=== PATIENT | female | born 1935 | race Caucasian/White ===

== ENCOUNTER 2017-04-23 10:40 | Inpatient (IN) | payer MEDICARE, BC ==
[~2017-04-23] VITALS: Ht 154.9 cm; Wt 152.0 kg
[~2017-04-23 10:40] MED LIST: ANAS1TAB7 PO; ANUHCC TOP; CHOL400T15 PO; DOCU-150 PO; ELIQUIS PO; FERR-63 PO; FLUT1DIS IH; FOLI-43 PO; METHENAMINE PO; METO25TA6 PO; OMEP20CA10 PO; PRAV10TA35 PO
[2017-04-23 12:02] LABS: BASOPHILS % 0.5 % (0.0-2.0); EOSINOPHILS % 0.2 % (0.0-5.0); HEMATOCRIT. 33.4 % (36.0-48.0); HEMOGLOBIN. 11.4 g/dL (12.0-16.0); LYMPHOCYTES % 10.8 % (20.0-50.0); MEAN CORPUSCULAR HEMOGLOBIN 33.6 pg (28.0-32.0); MEAN CORPUSCULAR VOLUME 98.4 fL (81.0-99.0); MEAN PLATELET VOLUME 8.1 fl (7.4-10.4); MONOCYTES % 8.8 % (2.0-8.0); NEUTROPHILS % 79.7 % (40.0-76.0); PLATELET 337 x1000/uL (130-400); RED BLOOD CELL COUNT 3.39 mill/uL (4.2-5.4); RED CELL DISTRIBUTION WIDTH 15.4 % (11.6-14.6)
[2017-04-23 12:06] LABS: CARBON DIOXIDE 31 mEq/L (21-32); CHLORIDE 96 mEq/L (98-107)
[2017-04-23 12:11] LABS: TROPONIN I 0.13 ng/mL (0.00-0.04)
[2017-04-23 12:24] LABS: D-DIMER 0.42 mg/L FEU (<0.50); INR 1.1; PROTHROMBIN TIME 11.8 sec (9.4-11.6)
[2017-04-23 16:00] VITALS: BP 117/58
[2017-04-23 16:38] VITALS: BP 117/58
[2017-04-23] MEDS ORDERED: CRANBERRY PO (17:43)
[2017-04-23] MEDS ORDERED: SPIR25TA4 PO (17:43)
[2017-04-23] MEDS ORDERED: DILT120C88 PO (17:43)
[2017-04-23] MEDS ORDERED: ASCO500C6 PO (17:43)
[2017-04-23] MEDS ORDERED: ASPI-1160 PO (17:43)
[2017-04-23] MEDS ORDERED: METF-516 PO (17:43)
[2017-04-23] MEDS ORDERED: DOCU-138 PO (17:43)
[2017-04-23] MEDS ORDERED: GLUCOSE TEST STRIP (17:43)
[2017-04-23] MEDS ORDERED: CALCIUM PO (17:43)
[2017-04-23] MEDS ORDERED: MAGN400T27 PO (17:43)
[2017-04-23 18:28] LABS: PHOSPHORUS 2.9 mg/dL (2.5-4.9)
[2017-04-23 20:00] VITALS: BP 118/50
[2017-04-24] VITALS (12 sets, daily range): BP systolic 92–140; BP diastolic 43–112
[2017-04-24] MEDS: DILTIAZEM HCL 120MG CAPSULE CD 24HR PO SCH (09:24)
[2017-04-24] MEDS: OMEPRAZOLE 20MG CAPSULE EXTENDED RELEASE PO SCH (10:37)
[2017-04-24] MEDS: ASPIRIN 81MG TABLET PO SCH (10:38)
[2017-04-24] MEDS: FOLIC ACID 1MG TABLET PO SCH (10:38)
[2017-04-24] MEDS: APIXABAN 5 MG TABLET PO SCH ×2 (10:38→17:41)
[2017-04-24 10:39] LABS: CARBON DIOXIDE 28 mEq/L (21-32); CHLORIDE 99 mEq/L (98-107); HDL CHOLESTEROL 50 mg/dL (40-59); LDL CHOLESTEROL 99 mg/dL (5-100); T4 FREE 1.44 ng/dL (0.76-1.46)
[2017-04-24] MEDS: SPIRONOLACTONE 25MG TABLET PO SCH ×2 (10:39→17:41)
[2017-04-24] MEDS ORDERED: IOHEXOL-300 100 ML BOTTLE ONE (11:13)
[2017-04-24 12:40] LABS: BASOPHILS % 0.6 % (0.0-2.0); EOSINOPHILS % 0.6 % (0.0-5.0); HEMATOCRIT. 34.4 % (36.0-48.0); HEMOGLOBIN. 11.6 g/dL (12.0-16.0); LYMPHOCYTES % 16.6 % (20.0-50.0); MEAN CORPUSCULAR HEMOGLOBIN 33.7 pg (28.0-32.0); MEAN CORPUSCULAR VOLUME 100.4 fL (81.0-99.0); MEAN PLATELET VOLUME 8.9 fl (7.4-10.4); MONOCYTES % 12.4 % (2.0-8.0); NEUTROPHILS % 69.8 % (40.0-76.0); PLATELET 335 x1000/uL (130-400); RED BLOOD CELL COUNT 3.43 mill/uL (4.2-5.4); RED CELL DISTRIBUTION WIDTH 15.3 % (11.6-14.6)
[2017-04-24 15:53] LABS: CREATINE KINASE MB FRACTION 0.5 ng/mL (0.5-3.6); TROPONIN I 0.15 ng/mL (0.00-0.04)
[2017-04-24] MEDS: FERROUS SULFATE 325MG TABLET PO SCH (17:41)
[2017-04-24 23:32] LABS: CREATINE KINASE 15 IU/L (26-192); CREATINE KINASE MB FRACTION < 0.5 ng/mL (0.5-3.6)
[2017-04-25] VITALS (13 sets, daily range): BP systolic 91–138; BP diastolic 49–81
[2017-04-25] MEDS: OMEPRAZOLE 20MG CAPSULE EXTENDED RELEASE PO SCH (07:03)
[2017-04-25] MEDS: DILTIAZEM HCL 120MG CAPSULE CD 24HR PO SCH (09:00)
[2017-04-25] MEDS: APIXABAN 5 MG TABLET PO SCH ×2 (09:05→18:03)
[2017-04-25] MEDS: FERROUS SULFATE 325MG TABLET PO SCH ×2 (09:06→18:04)
[2017-04-25] MEDS: SPIRONOLACTONE 25MG TABLET PO SCH ×2 (09:06→18:04)
[2017-04-25] MEDS: FOLIC ACID 1MG TABLET PO SCH (09:06)
[2017-04-25] MEDS: ASPIRIN 81MG TABLET PO SCH (09:06)
[2017-04-25 09:39] LABS: CREATINE KINASE 15 IU/L (26-192); CREATINE KINASE MB FRACTION < 0.5 ng/mL (0.5-3.6)
[2017-04-25] MEDS: DOCUSATE SODIUM 100MG CAPSULE PO SCH (18:06)
[2017-04-26] VITALS (10 sets, daily range): BP systolic 97–132; BP diastolic 47–97
[2017-04-26] MEDS: APIXABAN 5 MG TABLET PO SCH ×2 (08:12→17:15)
[2017-04-26] MEDS: FOLIC ACID 1MG TABLET PO SCH (08:12)
[2017-04-26] MEDS: ASPIRIN 81MG TABLET PO SCH (08:12)
[2017-04-26] MEDS: FERROUS SULFATE 325MG TABLET PO SCH ×2 (08:12→17:15)
[2017-04-26] MEDS: DOCUSATE SODIUM 100MG CAPSULE PO SCH ×2 (08:13→17:00)
[2017-04-26] MEDS: SPIRONOLACTONE 25MG TABLET PO SCH ×2 (08:13→17:16)
[2017-04-26] MEDS ORDERED: FAMOTIDINE 20MG TABLET PO SCH (09:00)
== END 2017-04-26 19:10 | disposition home or self-care (01) | DRG 291 ==
LOC: ER 11:25 → EDBEDREQ 13:04 → ENRESERV 13:24 → CANRESERV 13:24 → ENRESERV 13:32 → 6WST 13:32 → 3WST 04-24 12:45
PROVIDERS: ADMIT Family Medicine; ATTEND Family Medicine
DX: I11.0 Hypertensive heart disease with heart failure (principal); J96.00 Acute respiratory failure, unspecified whether with hypoxia or hypercapnia; I28.1 Aneurysm of pulmonary artery; Z68.44 Body mass index [BMI] 60.0-69.9, adult; I48.0 Paroxysmal atrial fibrillation; I50.21 Acute systolic (congestive) heart failure; E66.01 Morbid (severe) obesity due to excess calories; I44.1 Atrioventricular block, second degree; I77.810 Thoracic aortic ectasia; I89.0 Lymphedema, not elsewhere classified; I25.10 Atherosclerotic heart disease of native coronary artery without angina pectoris; E78.5 Hyperlipidemia, unspecified; E11.9 Type 2 diabetes mellitus without complications; R74.8 Abnormal levels of other serum enzymes; Z79.899 Other long term (current) drug therapy; Z79.82 Long term (current) use of aspirin; Z79.84 Long term (current) use of oral hypoglycemic drugs; Z88.1 Allergy status to other antibiotic agents; Z79.01 Long term (current) use of anticoagulants; Z85.9 Personal history of malignant neoplasm, unspecified
CPT/HCPCS: 36415; 71010; 71275; 80053; 80061; 82550; 82553; 83036; 83735; 83880; 84100; 84439; 84443; 84484; 85025; 85379; 85610; 93005; 93308; 93970; 99285; A6261; C1893; Q9967